=== PATIENT | female | born 1950 | race Asian ===

== ENCOUNTER 2017-12-12 05:36 | Inpatient (IN) | payer MEDICARE, OTHER ==
[2017-12-12] VITALS (17 sets, daily range): BP systolic 113–163; BP diastolic 75–100
[~2017-12-12] VITALS: Ht 144.8 cm; Wt 48.6 kg
[2017-12-12] MEDS ORDERED: Activated Charcoal 50gm/240ml Btl ORAL ONE (05:45)
--- NOTE | 2017-12-12 05:51 | Emergency Room Report ---
History of Present Illness General Chief Complaint: Overdose Source: Patient, Family Member, EMS Present Illness HPI This is a 67-year-old German female who has a history of chronic pain and was taking [place] 10/325 mg the last 7 years. She was recently diagnosed with Sjogren. She has been depressed. Per her , she took approximately 40- 50 tablets of her [place] about 25-30 minutes prior to arrival. Her said that she wanted to show him how she wanted to . He called 911. Patient complained of generalized pain and abdominal pain. No fever chills. No nausea no vomiting. Denies any other complaint. Denies any other drugs or alcohol use. Allergies: Coded Allergies: No Known Allergies (Unverified , 12/12/17) Patient History Past Medical History: see triage record, old chart reviewed Past Surgical History: other Pertinent Family History: none Social History: Denies: smoking Now: No Immunizations: other Reviewed Nursing Documentation: PMH: Agreed; PSxH: Agreed Nursing Documentation-PMH Hx Diabetes: Yes Review of Systems Eye: Denies: eye pain, blurred vision ENT: Denies: ear pain, nose congestion, throat swelling Respiratory: Denies: cough, shortness of breath Cardiovascular: Denies: chest pain, palpitations Gastrointestinal: Reports: abdominal pain; Denies: diarrhea, nausea, vomiting Musculoskeletal: Denies: back pain, joint pain Skin: Denies: rash Neurological: Denies: headache, numbness Endocrine: Denies: increased thirst, increased urine Hematologic/Lymphatic: Denies: easy bruising All Other Systems: negative except mentioned in HPI Physical Exam Vital Signs Date Time Temp Pulse Resp B/P (MAP) Pulse Ox O2 Delivery O2 Flow Rate FiO2 12/12/17 05:30 98.1 67 16 140/90 100 Room Air 98.1 vitals normal Sp02 EP Interpretation: reviewed, normal General Appearance: well appearing, no apparent distress, alert Head: normocephalic, atraumatic Eyes: bilateral eye PERRL, bilateral eye EOMI ENT: hearing grossly normal, normal pharynx Neck: full range of motion, supple, no meningismus Respiratory: chest non-tender, lungs clear, normal breath sounds Cardiovascular #1: regular rate, rhythm, no murmur Gastrointestinal: normal bowel sounds, non tender, no mass, no organomegaly, no bruit, non-distended Musculoskeletal: back normal, gait/station normal, normal range of motion Psychiatric: mood/affect normal Skin: warm/dry Procedures Critical Care Time Critical Care Time Critical care is mandated in this patient who presented with toxic overdose of opiate and Tylenol. Patient require my urgent intervention to attenuate the risks of metabolic collapse which may lead to cardiovascular collapse and . Critical care time is 35 minutes excluding any reportable procedure. Critical care time included evaluation, multiple reevaluation, looking at old charts, interpreting laboratory and diagnostic data, discussing case with patient and family and consultants, and charting. Medical Decision Making Diagnostic Impression: Primary Impression: Drug overdose Qualified Codes: T50.902A - Poisoning by unspecified drugs, medicaments and biological substances, intentional self-harm, initial encounter Additional Impressions: Tylenol overdose Qualified Codes: T39.1X2A - Poisoning by 4-aminophenol derivatives, intentional self-harm, initial encounter Opiate overdose Qualified Codes: T40.602A - Poisoning by unspecified narcotics, intentional self-harm, initial encounter ER Course Patient with overdose of very large amount of hydrocodone and Tylenol. The concerning thing is that the amount of potential Tylenol overdose is over twice a limited of 150 mg/kg of toxicity. Because of this, I initiated Mucomyst IV loading dose. Because her overdose has been less than an hour, I place a large OG-tube to see if we can pump out any pills. She did vomit and there were no pills. She did become somnolent and responded to Narcan. Patient also received charcoal. Patient will be admitted to the hospital for monitoring. She may need Narcan drip. I contacted Dr. Hyman for admission. EKG Diagnostic Results Rate: normal Rhythm: NSR ST Segments: no acute changes Rhythm Strip Diag. Results Rhythm Strip Time: 06:30 EP Interpretation: yes Rate: 62 Rhythm: NSR, no PVC's, no ectopy Chest X-Ray Diagnostic Results Chest X-Ray Diagnostic Results : Chest X-Ray Ordered: Yes # of Views/Limited/Complete: 1 View Indication: Shortness of Breath EP Interpretation: Yes Interpretation: no consolidation, no effusion, no pneumothorax, no acute cardiopulmonary disease Impression: No acute disease Electronically Signed by: Grey Abebe MD Last Vital Signs Date Time Temp Pulse Resp B/P (MAP) Pulse Ox O2 Delivery O2 Flow Rate FiO2 12/12/17 05:30 98.1 67 16 140/90 100 Room Air 98.1 Status: improved Disposition: ADMITTED INPATIENT Condition: Critical Grey Abebe MD Dec 12, 2017 05:51
[2017-12-12] MEDS ORDERED: Naloxone 1mg/ml 2ml ONE (05:57)
[2017-12-12] MEDS ORDERED: Naloxone 1mg/ml 2ml IVP ONE (06:15)
[2017-12-12 06:37] LABS: HEMATOCRIT 33.3 % (37.0-47.0); HEMOGLOBIN 11.1 G/DL (12.0-16.0); MEAN CORPUSCULAR VOLUME 86 FL (80-99); PLATELET COUNT 90 K/UL (150-450); RED BLOOD COUNT 3.88 M/UL (4.20-5.40); RED CELL DISTRIBUTION WIDTH 12.3 % (11.6-14.8)
[2017-12-12 06:39] LABS: ANION GAP 8 mmol/L (5-15); BLOOD UREA NITROGEN 16 mg/dL (7-18); CALCIUM 7.2 MG/DL (8.5-10.1); CARBON DIOXIDE 24 MMOL/L (21-32); CHLORIDE 98 MMOL/L (98-107); CREATININE 0.7 MG/DL (0.55-1.30); POTASSIUM 3.9 MMOL/L (3.5-5.1); SODIUM 130 MMOL/L (136-145)
--- NOTE | 2017-12-12 06:39 | Diagnostic Imaging Report ---
EXAM: XR Chest, 1 View. CLINICAL HISTORY: Shortness of breath TECHNIQUE: Frontal view of the chest. COMPARISON: No relevant prior studies available. FINDINGS: Lungs: Lung volumes are within normal limits. No acute interstitial abnormality. No consolidation. Pleural spaces: Unremarkable. No pneumothorax. Heart: Unremarkable. No cardiomegaly. Mediastinum: Unremarkable. Bones: Unremarkable. No acute fracture. IMPRESSION: No evidence of active cardiopulmonary abnormality.
[2017-12-12 06:42] LABS: INR 1.1 (0.9-1.1)
[2017-12-12 06:49] LABS: ALANINE AMINOTRANSFERASE 27 U/L (12-78); ALBUMIN 3.7 G/DL (3.4-5.0); ALBUMIN/GLOBULIN RATIO 0.7 (1.0-2.7); ALKALINE PHOSPHATASE 99 U/L (46-116); ASPARTATE AMINO TRANSFERASE 39 U/L (15-37); BILIRUBIN,TOTAL 1.1 MG/DL (0.2-1.0)
[2017-12-12 06:56] LABS: BILIRUBIN,DIRECT 0.2 MG/DL (0.0-0.3)
[2017-12-12] MEDS ORDERED: ACETADOTE IV ONE ×3 (07:00→11:00)
[2017-12-12] MEDS ORDERED: D5W IV ONE ×3 (07:00→11:00)
[2017-12-12 07:45] LABS: APPEARANCE,URINE CLEAR; BILIRUBIN, URINE NEGATIVE (NEGATIVE); COLOR,URINE PALE YELLOW; GLUCOSE, URINE (UA) NEGATIVE (NEGATIVE); KETONES,URINE NEGATIVE (NEGATIVE); LEUKOCYTE ESTERASE ,URINE 1+ (NEGATIVE); NITRITE,URINE NEGATIVE (NEGATIVE); PH,URINE 7 (4.5-8.0); PROTEIN,URINE NEGATIVE (NEGATIVE); UROBILINOGEN,URINE NORMAL MG/DL (0.0-1.0)
--- NOTE | 2017-12-12 10:59 | Consultation ---
Consult Note Assessment/Plan #[id number] drug overdose despression sjogrens disease Elyssa Dejesus DO Dec 12, 2017 10:59
[2017-12-12] MEDS: D5 1/2NS 1,000 ML IV SCH ×2 (11:00→20:34)
--- NOTE | 2017-12-12 11:57 | History & Physical ---
History and Physical History & Physicial [facility] [id number] Abraham Hyman MD Dec 12, 2017 11:57
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
[2017-12-12] MEDS: Pantoprazole Inj IVP SCH (20:35)
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
[2017-12-13] VITALS (10 sets, daily range): BP systolic 125–156; BP diastolic 65–96
[2017-12-13] MEDS: D5 1/2NS 1,000 ML IV SCH (06:38)
[2017-12-13] MEDS: Pantoprazole Inj IVP SCH (09:00)
[2017-12-13] MEDS ORDERED: NS 275ml ONE (11:29)
--- NOTE | 2017-12-13 23:54 | General Progress Note ---
Assessment/Plan Problem List: (1) Alcohol abuse ICD Codes: F10.10 - Alcohol abuse, uncomplicated SNOMED: 58748779 (2) MDD (major depressive disorder), recurrent episode, moderate ICD Codes: F33.1 - Major depressive disorder, recurrent, moderate SNOMED: 22936617, 036442856 (3) Overdose ICD Codes: T50.901A - Poisoning by unspecified drugs, medicaments and biological substances, accidental (unintentional), initial encounter SNOMED: 32529238 (4) Opioid abuse ICD Codes: F11.10 - Opioid abuse, uncomplicated SNOMED: 1307863 Assessment/Plan the pt was not at imminent dts/dto the pt denied si the pt stated that would like to be dced home the pt will be discharged to the pt was educated about substance use Subjective Neurologic/Psychiatric: Reports: anxiety Allergies: Coded Allergies: No Known Allergies (Unverified , 12/12/17) Subjective the pt was insisting to leave denied si stated that she was stressed and wanted to sleep and took couple of pills Objective Last 24 Hour Vital Signs Date Time Temp Pulse Resp B/P (MAP) Pulse Ox O2 Delivery O2 Flow Rate FiO2 12/13/17 09:00 68 19 133/68 (89) 100 12/13/17 08:00 Room Air 12/13/17 08:00 65 12/13/17 08:00 98.6 66 19 125/65 (85) 100 98.6 12/13/17 07:00 62 19 126/66 (86) 100 12/13/17 06:00 75 19 154/86 (108) 100 12/13/17 05:00 71 19 152/75 (100) 100 12/13/17 04:00 98.3 72 20 143/82 (102) 100 98.3 12/13/17 04:00 Room Air 12/13/17 03:37 62 12/13/17 03:00 67 18 126/66 (86) 100 12/13/17 02:00 73 20 136/96 (109) 100 12/13/17 01:00 57 16 156/77 (103) 99 12/13/17 00:00 Room Air 12/13/17 00:00 98.3 65 19 135/77 (96) 100 98.3 Intake and Output 12/12/17 12/13/17 18:59 06:59 Intake Total 1137.5 ml 1940.0 ml Output Total 750 ml 1100 ml Balance 387.5 ml 840.0 ml Intake Oral 0 ml 150 ml IV Total 1137.5 ml 1790.0 ml Output Urine Total 750 ml 1100 ml # Voids 1 # Bowel Movements 4 Height (Feet): 4 Height (Inches): 9.00 Weight (Pounds): 107 General Appearance: no apparent distress, alert Neurologic: oriented x 3, responsive, depressed affect Alis Hannon MD Dec 13, 2017 23:54
--- NOTE | 2017-12-14 14:36 | Discharge Summary ---
Discharge Summary Discharge Summary _ DATE OF ADMISSION: 12/12/2017 DATE OF DISCHARGE: 12/13/2017 REASON FOR ADMISSION: 67 years old Arabic female with history of chronic back pain on [place] 10/ over the last 7 years, with recent diagnosis of Sjgren disease, depression, presented to emergency department by paramedics. Per patient's , she took approximately 40-50 pills of [place] about 25-30 minutes prior to arrival. called paramedics. Upon arrival patient was complaining of generalized and abdominal pain, no fever, no chills, no nausea ,no vomiting . Upon evaluation urine toxicology screen was positive for opiates and benzodiazepine. No leukocytosis ,hemoglobin 11.1 hematocrit 33.3 . AST 39, ALT 27, total bilirubin 1.1, direct bilirubin 0.2. Chest x-ray revealed no evidence of acute cardiopulmonary pathology. EKG revealed normal sinus rhythm, no acute ischemic changes. Mucomyst was initiated in emergency department. Large-bore orogastric tube was placed in, however patient did not vomit , and there were no pills. Patient became somnolent, but responded well to Narcan. Patient also received charcoal. Patient admitted with diagnoses of drug overdose . CONSULTANTS: pulmonary Dr Hallie Ch psychiatrist [facility] COURSE: Patient admitted to ICU and started on IV fluids. Patient was closely monitored . Patient received additional Mucomyst in ICU. DVT prophylaxis provided . Neuro checks done frequently. Venous duplex bilateral lower extremity was negative. GI prophylaxis provided. Per psychiatrist evaluation , patient was not at imminent danger to self or others. Patient denied suicidal ideations. Patient was counseled on minimal use of opiates. Patient clinically stabilized. Mental status stable. No pain, no nausea, no vomiting, Patient tolerated diet, Psychiatrist cleared for discharge, Patient to follow up with primary care provider in 2-3 days to check LFT. Due to rapid and unexpected improvement in patient's condition, patient was discharged in one day. FINAL DIAGNOSES: Tylenol overdose Opiate overdose Major depression disorder, recurrent episode, moderate Recently diagnosed Sjgren disease Chronic back pain DISCHARGE MEDICATIONS: See Medication Reconciliation list. DISCHARGE INSTRUCTIONS: Patient was discharged home Follow up with primary care provider in one week. I have been assigned to dictate discharge summary for this account. I was not involved in the patient's management. Sona Bustos NP Dec 14, 2017 14:36
--- NOTE | 2017-12-14 16:11 | Cardiology Report ---
APPROVED REPORT EKG Measurement Heart [id number] Normal sinus rhythm Nonspecific ST and T wave abnormality Prolonged QT Abnormal ECG
== END 2017-12-13 11:30 | disposition home or self-care (01) | DRG 918 ==
LOC: EDBD 05:36 → EMR 06:26 → EDBD 06:33 → ICU 06:33 → EDBEDREQ 07:00
DX: T39.1X2A Poisoning by 4-Aminophenol derivatives, intentional self-harm, initial encounter (principal); F33.8 Other recurrent depressive disorders; T40.602A Poisoning by unspecified narcotics, intentional self-harm, initial encounter; R40.0 Somnolence; Y92.009 Unspecified place in unspecified non-institutional (private) residence as the place of occurrence of the external cause; M35.00 Sjogren syndrome, unspecified; G89.29 Other chronic pain; M54.9 Dorsalgia, unspecified
CPT/HCPCS: 36415; 43753; 71045; 80053; 80307; 80329; 81003; 82248; 85007; 85025; 85610; 85730; 87081; 93005; 93970; 96361; 96365; 96375; 99291; J2310; J2405